=== PATIENT | male | born 1950 | race Caucasian/White ===

== ENCOUNTER 2021-10-18 19:08 | Emergency (ER) | payer OTHER ==
[2021-10-18] MEDS ORDERED: Sodium Chloride 0.9% 10 ML Syringe FLUSH PRN (20:03)
[2021-10-18] MEDS ORDERED: Sodium Chloride 0.9% 1,000 ML IV SCH (20:15)
[2021-10-18] MEDS ORDERED: Sucralfate 1 GM Tab PO ONE (22:14)
== END 2021-10-18 22:39 | disposition home or self-care (01) ==
LOC: JP.ED 19:08
DX: R11.2 Nausea with vomiting, unspecified (principal); E86.0 Dehydration
CPT/HCPCS: 36415; 80053; 83605; 85025; 99283; 99284; A9270-GY; J7030

== ENCOUNTER 2022-03-21 21:21 | Inpatient (IN) | payer OTHER ==
[2022-03-21] MEDS ORDERED: Sodium Chloride 0.9% 1,000 ML IV SCH (23:00)
[2022-03-21] MEDS: Ondansetron 4 MG/2 ML SDV IVPUSH ONE (23:12)
[2022-03-21 23:36] LABS: ESTIMATED GFR 43 mL/min (>60)
[2022-03-22] MEDS ORDERED: Morphine 2 MG/ML SYRINGE IVPUSH PRN (00:57)
[2022-03-22] MEDS ORDERED: LORazepam 2 MG/ML SDV IV PRN (00:57)
[2022-03-22] MEDS ORDERED: Ondansetron 4 MG/2 ML SDV IV PRN (00:57)
[2022-03-22] MEDS ORDERED: Sodium Chloride 0.9% 1,000 ML IV SCH (01:00)
[2022-03-22] MEDS ORDERED: Pantoprazole 40 MG Vial IVPUSH SCH ×2 (01:15→02:00)
[2022-03-22] MEDS: Ondansetron 4 MG/2 ML SDV IVPUSH ONE (01:15)
[2022-03-22] MEDS ORDERED: cefTRIAXone 1 GM in Sodium Chloride 0.9% 50 ML IV SCH (02:00)
[2022-03-22] MEDS ORDERED: Dextrose 5%-Lactated Ringers 1,000 ML IV SCH (07:45)
[2022-03-22] MEDS ORDERED: metFORMIN 500 MG Tab PO SCH (08:00)
[2022-03-22] MEDS ORDERED: Apixaban 5 MG Tab PO SCH (09:00)
== END 2022-03-22 15:02 | disposition home or self-care (01) | DRG 388 ==
LOC: JP.ED 21:21 → JP.MS 03-22 00:56
PROVIDERS: ADMIT Internal Medicine; ATTEND Surgery
DX: K56.609 Unspecified intestinal obstruction, unspecified as to partial versus complete obstruction (principal); K91.30 Postprocedural intestinal obstruction, unspecified as to partial versus complete; K85.90 Acute pancreatitis without necrosis or infection, unspecified; D84.9 Immunodeficiency, unspecified; C79.89 Secondary malignant neoplasm of other specified sites; Z93.6 Other artificial openings of urinary tract status; Z20.822 Contact with and (suspected) exposure to COVID-19; N31.9 Neuromuscular dysfunction of bladder, unspecified; M19.90 Unspecified osteoarthritis, unspecified site; E11.9 Type 2 diabetes mellitus without complications; Z96.0 Presence of urogenital implants; Z85.038 Personal history of other malignant neoplasm of large intestine; Z79.899 Other long term (current) drug therapy; Z93.3 Colostomy status; Z79.01 Long term (current) use of anticoagulants; Z79.84 Long term (current) use of oral hypoglycemic drugs
CPT/HCPCS: 36415; 74176; 80053; 82150; 83690; 85025; 87635; J7030; 74019; 74019-26; 80048; 96360; 99285; 99285-25; A9270-GY; C9113; J0696; J2405; U0002